=== PATIENT | male | born 1985 | race Caucasian/White ===

== ENCOUNTER 2017-11-23 12:17 | Emergency (ER) | payer MEDICAID ==
[2017-11-23 12:20] VITALS: BP 130/87
--- NOTE | 2017-11-23 12:36 | EDPHY ---
General - History Smoking Status: Current every day smoker Time Seen by Provider: 11/23/17 12:28 Narrative: CHIEF COMPLAINT: Thumb laceration now infected HISTORY OF PRESENT ILLNESS: Patient presents with complaints of possible infection of the thumb laceration. The laceration was sustained yesterday. It is on his left thumb on the posterior aspect. This happened while at work. 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 He did not clean irrigated. He did not think it was a significant injury to time. He did not notice any abnormalities to until today at 11:00 a.m. While at work. He noticed some redness and streaking up the left arm. It is minimally painful. No fever. No difficulty bending or straightening the wrist, elbow or fingers. He does feel some tenderness in the left axilla. No other associated complaints or modifying factors. Right-hand dominant TIME OF INJURY: 11:00 a.m. Yesterday TETANUS STATUS: Less than 4 years ago MEDICAL/SURGICAL/SOCIAL HISTORY: Uncomplicated medical history. Does smoke cigarettes. Occasional alcohol. Works as an electrician machine shop REVIEW OF SYSTEMS: Ten systems reviewed and are negative unless otherwise noted in the HPI EXAMINATION General Appearance: Alert, no distress Head: normocephalic, atraumatic Cardiovascular: Symmetric radial pulses 2+. Brisk cap refill the fingers left hand. Neurological: A&O, sensory of the radial, ulnar and median distributions on the left upper extremity is intact. Interossei strength is symmetric. There is no wrist drop. Skin: Warm and dry. There is a 1 cm laceration of the dorsum of the left thumb over the proximal phalanx near the MCP joint. There is spontaneous drainage. No purulence. There is lymphangitic streaking caudally from here. This goes up to the elbow. There is no circumferential cellulitis. No palpable fluctuance. No warmth to any of the joints on the left hand or wrist. No evidence of septic joint. Extremities: Minimal tenderness to the left thumb laceration. No tenderness to the left forearm. The compartments of the left forearm are all soft. Range of motion is symmetric in the elbow, wrist and all fingers. No evidence of septic joint. There is some left axillary lymphadenopathy. DIFFERENTIAL DIAGNOSES: Including but not limited to cellulitis, lymphangitis, laceration with delayed presentation, laceration with infection MDM: 12:30 p.m. Superficial laceration to the left thumb yesterday who presents now with some lymph and did changes to left upper extremity. I do not appreciate any evidence of septic joint. He does have a spontaneously draining wound. I have anesthetize this. We will copiously irrigate and I will re-evaluate. 1:00 p.m. Patient has been evaluated by Dr. Caro. We are in agreement that the patient could be treated with oral antibiotics. No evidence of septic joint. Minimal tenderness to the left arm. We stressed the importance of close follow-up tomorrow either with orthopedist or here in this facility. I discussed Bactrim and Keflex antibiotics by mouth. I discussed nonweightbearing to left upper extremity. Discussed ED precautions for worsening redness, any pain, fever, difficulty bending or straightening the fingers. He informs me that he is supposed to fly to [place] tomorrow. I recommended that he alter his plans and that he be evaluated here or with Orthopedics prior to do so. He will consider this and would like to be discharged home. He is discharged in stable condition. SUPERVISION: Patient was evaluated and examined in conjunction with my secondary supervising physician as documented. We have both examined the patient. ED Precautions: Worsening pain. Erythema, edema, cyanosis, pallor, paresthesia or anesthesia. (Luiz Ramos) Medical Decision Making: PHYSICIAN DOCUMENTATION: The patient was evaluated and managed by the Physician Plastic Press Operator and myself. I have reviewed the chart and agree with the findings and plan of care as documented. In addition, I examined the patient myself at 1300. History confirmed as the cut yesterday, redness and swelling today. Physical findings as follows: Patient has good range of motion of all fingers including the thumb , does not have tenderness to palpation over the areas of redness. Does not have subjective chills or fever or elevated temperature. Patient would like to do oral antibiotics and splint which I think is reasonable, I do not think he requires IV or surgical exploration at this time. I think deep space infection such as abscess, or septic joint are unlikely. Does not have clinical findings of tenosynovitis. I am the secondary supervising physician. (Tereso Caro) - Objective Vital Signs: Initial Vital Signs Temperature (C) 36.4 C 11/23/17 12:17 Heart Rate 102 H 11/23/17 12:17 Respiratory Rate 18 11/23/17 12:17 Blood Pressure 130/87 H 11/23/17 12:17 O2 Sat (%) 96 11/23/17 12:17 O2 Delivery Mode Room Air Allergies/Adverse Reactions: No Known Allergies Allergy (Unverified 11/23/17 12:19) Home Medications: Medication Instructions Recorded Cephalexin [Keflex (*)] 500 mg PO QID #40 cap 11/23/17 Sulfamethox/Tmp 800/160 mg 2 tab PO BID 10 Days tab 11/23/17 [Bactrim Ds] Departure - Departure Disposition: Home, Routine, Self-Care Clinical Impression: Cellulitis of thumb, left Laceration of left thumb with infection Qualifiers: Encounter type: initial encounter Qualified Code(s): S61.012A - Laceration without foreign body of left thumb without damage to nail, initial encounter Condition: Good Instructions: Laceration Without Closure (ED) Additional Instructions: 1. Bactrim as prescribed to completion for 10 days 2. Keflex as prescribed to completion for 10 days 3. Do need to return here tomorrow morning before you leave town for wound re- evaluation 4. We recommend that you follow up with Orthopedics tomorrow for re-evaluation as well 5. Return to emergency department for worsening redness, any pain in the extremity, fever, difficulty bending or straightening the fingers, purulent drainage Referrals: Chapincito Vasquez MD [Medical Doctor] - As per Instructions Physician,Emergency DeptMD [Medical Doctor] - 1 day without fail Stand Alone Forms: Airline Excuse Prescriptions: Cephalexin [Keflex (*)] 500 mg PO QID #40 cap Sulfamethox/Tmp 800/160 mg [Bactrim Ds] 2 tab PO BID 10 Days tab
== END 2017-11-23 13:20 | disposition home or self-care (01) ==
DX: S61.012A Laceration without foreign body of left thumb without damage to nail, initial encounter (principal); F17.210 Nicotine dependence, cigarettes, uncomplicated; L03.012 Cellulitis of left finger; W45.8XXA Other foreign body or object entering through skin, initial encounter
CPT/HCPCS: L3807